=== PATIENT | female | born 1925 | race Caucasian/White ===

== ENCOUNTER 2016-05-09 16:18 | Emergency (ER) | payer MEDICARE ==
[2016-05-09] MEDS ORDERED: SODIUM CHLORIDE 0.9% 1,000 ML ONE (16:52)
[2016-05-09 17:06] LABS: ABSOLUTE NEUTROPHIL COUNT 4.1 K/mm3 (1.8-7.7); BASO % 0.3 % (0.2-1.0); EOS % 0.3 % (0.9-2.9); HEMATOCRIT 38.8 % (37.0-47.0); HEMOGLOBIN 12.6 gm/l (12.0-16.0); IMM NEUT # 0.1 K/mm3 (0-0.2); IMM NEUT% 0.9 % (0-1); LYMPH # 1.3 (1.0-4.8); LYMPH % 20.9 % (15-45); MEAN CELL VOLUME 98.2 fl (81.0-99.0); MEAN CORPUSCULAR HEMOGLOBIN 31.9 pg (27.0-31.0); MEAN CORPUSCULAR HGB CONC 32.5 g/dl (33.0-37.0); MEAN PLATELET VOLUME 9.7 fl (7.4-10.4); MONO # 0.9 (0.0-0.8); MONO % 13.9 % (4-12); NEUT % 63.7 % (43-75); PLATELET COUNT 233 K/mm3 (130-400); RED CELL DISTRIBUTION WIDTH 12.5 % (11.5-14.5)
[2016-05-09 17:43] LABS: ALBUMIN 3.7 gm/dL (3.5-5.7); CALCIUM 9.4 mg/dL (8.6-10.3)
--- NOTE | 2016-05-09 17:56 | CT ---
HEAD W/O CON History: Altered level of consciousness. Comparison: 04/24/2016. Procedure: 1 mm axial images were obtained through the head from the vertex to the base of the skull without intravenous contrast. Stacked reconstructed 5 mm images were then obtained in the axial, coronal and sagittal planes. Findings: The lateral ventricles, cerebral sulci and sylvian fissures are prominent though appear to be stable from their appearance on prior exam. No evidence of midline shift is seen. No mass or mass effect is identified. No evidence of intra or extra-axial fluid collections or hemorrhage is seen. Extensive periventricular deep white matter low-attenuation changes are present. The basilar cisterns are uneffaced. The posterior fossa structures are unremarkable. Bone windows demonstrate no acute osseous abnormalities. Impression: 1. Diffuse cerebral atrophy. 2. Extensive periventricular deep white matter low-attenuation changes most consistent with small vessel ischemia considering patient age. 3. No findings of acute intracranial hemorrhage. The appearance is similar to that seen on prior exam of 04/24/2016.
--- NOTE | 2016-05-09 18:11 | RAD ---
CHEST-AP BEDSIDE HISTORY: Altered level of consciousness with cough. COMPARISONS: 06/26/2011. FINDINGS: A single view of the chest was performed demonstrating a low inspiratory volume. There is note again made of hardware fixation of the thoracic spine, similar to the appearance on prior examination. No definite focal consolidation, effusion or pneumothorax is seen. The hilar and mediastinal structures are intact. IMPRESSION: 1. A low inspiratory volume. 2. A stable appearance of the posterior thoracic hardware. 3. No active intrathoracic disease.
[2016-05-09] MEDS ORDERED: Oseltamivir Phosphate 75 MG CAP ONE (18:13)
[2016-05-09 18:40] LABS: URINE BILIRUBIN NEGATIVE (NEGATIVE); URINE BLOOD NEGATIVE (NEGATIVE); URINE GLUCOSE (UA) NEGATIVE (NEGATIVE); URINE LEUKOCYTE ESTERASE NEGATIVE (NEGATIVE); URINE NITRITE NEGATIVE (NEGATIVE); URINE PROTEIN NEGATIVE (NEGATIVE); URINE UROBILINOGEN NORMAL (0-1 mg/dl)
[2016-05-09 18:42] LABS: URINE APPEARANCE CLEAR; URINE COLOR YELLOW
== END 2016-05-09 22:24 | disposition home or self-care (01) ==
LOC: ED 16:18
DX: J09.X2 Influenza due to identified novel influenza A virus with other respiratory manifestations (principal); R41.82 Altered mental status, unspecified; F03.90 Unspecified dementia, unspecified severity, without behavioral disturbance, psychotic disturbance, mood disturbance, and anxiety